=== PATIENT | female | born 1965 | race Caucasian/White ===

== ENCOUNTER 2017-07-08 13:56 | Emergency (ER) | payer OTHER, BC ==
--- NOTE | 2017-07-08 15:34 | RADIOLOGY REPORT (SQ) ---
EXAM DESCRIPTION: KNEE RIGHT 3 VIEWS COMPLETED DATE/TIME: 07/08/2017 2:55 pm REASON FOR STUDY: bed8 s/p fall +ttenderness COMPARISON: 01/29/2024 NUMBER OF VIEWS: Three views. TECHNIQUE: AP, lateral, and sunrise patella radiographic images acquired of the right knee. LIMITATIONS: None. FINDINGS: Minimally displaced fracture of the inferior pole of the patella. Intact femoral and tibi al components of the prosthesis. No foreign body. IMPRESSION: Fracture of the patella. TECHNICAL DOCUMENTATION: JOB ID: [id number] [employer]- All Rights Reserved
--- NOTE | 2017-07-08 15:58 | ER Document Report ---
ED Extremity Problem, Lower <LISBETH ALVARADO - Last Filed: 07/08/17 16:03> - General Mode of Arrival: Ambulatory Information source: Patient TRAVEL OUTSIDE OF THE [place] IN LAST 30 DAYS: No - HPI Patient complains to provider of: Pain, Swelling Location: Knee - right Occurred: Just prior to arrival Where: Work Quality of pain: Achy, Sharp Context: Fell <ELIZABETH BLACK - Last Filed: 07/08/17 18:15> - General Chief Complaint: Knee Injury Stated Complaint: FALL/ KNEE PAIN Time Seen by Provider: 07/08/17 15:48 Notes: Patient is a 52-year-old female who presents to the emergency department today with complaints of right knee pain secondary to a fall that occurred at work. Patient states she has a history of bilateral knee replacements. Patient states she had both knee surgeries secondary to her legs being "bone on bone". Patient denies any other injuries during the fall. (ELIZABETH BLACK) Past Medical History - General Information source: Patient - Social History Smoking Status: Never Smoker Cigarette use (# per day): No Chew tobacco use (# tins/day): No Frequency of alcohol use: Occasional Drug Abuse: None Lives with: Family Family History: Reviewed & Not Pertinent Musculoskeltal Medical History: Reports Other - Hx of severe arthritis Past Surgical History: Reports: Hx Orthopedic Surgery - Bilateral knee replacements <ELIZABETH BLACK - Last Filed: 07/08/17 18:15> Review of Systems - Review of Systems Constitutional: No symptoms reported EENT: No symptoms reported Cardiovascular: No symptoms reported Respiratory: No symptoms reported Gastrointestinal: No symptoms reported Genitourinary: No symptoms reported Female Genitourinary: No symptoms reported Musculoskeletal: See HPI, Joint pain - right knee Skin: No symptoms reported Hematologic/Lymphatic: No symptoms reported Neurological/Psychological: No symptoms reported -: Yes All other systems reviewed and negative <ELIZABETH BLACK - Last Filed: 07/08/17 18:15> Physical Exam <LISBETH ALVARADO - Last Filed: 07/08/17 16:03> <ELIZABETH BLACK - Last Filed: 07/08/17 18:15> - Vital signs Vitals: Temp Pulse Resp BP Pulse Ox 97.9 F 66 16 135/84 H 97 07/08/17 14:02 07/08/17 14:02 07/08/17 14:02 07/08/17 14:02 07/08/17 14:02 - Notes Notes: Physical Exam: General: Alert, appears well. HEENT: Normocephalic. Atraumatic. PERRL. Extraocular movements intact. Oropharynx clear. Neck: Supple. Non-tender. Respiratory: No respiratory distress. Clear and equal breath sounds bilaterally. Cardiovascular: Regular rate and rhythm. Abdominal: Normal Inspection. Non-tender. No distension. Normal Bowel Sounds. Back: Non-tender. No deformity or step off. Extremities: Upper extremities: Normal inspection. Normal ROM. Lower extremities: Holds knee in a slightly flexed position for comfort, right knee swelling anteriorly with associated tenderness with palpation. Neurological: Normal cognition. AAOx4. Normal speech. Psychological: Normal affect. Normal Mood. Skin: Warm. Dry. Normal color. (ELIZABETH BLACK) Course - Diagnostic Test Radiology reviewed: Image reviewed, Reports reviewed - Minimally displaced fracture inferior patella, total knee hardware looks good <LISBETH ALVARADO - Last Filed: 07/08/17 16:03> <ELIZABETH BLACK - Last Filed: 07/08/17 18:15> - Re-evaluation Re-evalutation: 07/08/17 16:08 The patient was given a copy of the x-ray report and a CD of the x-ray. She states [facility] with [facility], however she has not been seen there is a patient. She does live in [facility] [place]. I will give her the contact information for [facility] for surgery and told her she could either call them to be managed here locally, or call [facility] in [place] to be seen there. (LISBETH ALVARADO) - Vital Signs Vital signs: Temp Pulse Resp BP Pulse Ox 97.0 F 62 16 156/84 H 98 07/08/17 17:18 07/08/17 17:18 07/08/17 17:18 07/08/17 17:18 07/08/17 17:18 Discharge <LISBETH ALVARADO - Last Filed: 07/08/17 16:03> <ELIZABETH BLACK - Last Filed: 07/08/17 18:15> - Discharge Clinical Impression: Right patella fracture Qualifiers: Encounter type: initial encounter Fracture type: closed Fracture morphology: transverse Fracture alignment: displaced Qualified Code(s): S82.031A - Displaced transverse fracture of right patella, initial encounter for closed fracture Condition: Stable Disposition: HOME, SELF-CARE Additional Instructions: Use the knee immobilizer to stabilize the knee joint and prevent flexion. Elevate your leg all the time. Use ice packs to the knee today. Take medications for pain as needed. Call the orthopedic surgeon for a follow-up appointment this week. RETURN TO THE EMERGENCY ROOM IF ANY NEW OR WORSENING SYMPTOMS. Prescriptions: Oxycodone HCl/Acetaminophen [Percocet 5-325 mg Tablet] 1 - 2 tab PO ASDIR PRN # 15 tablet PRN Reason: Referrals: [facility] [Provider Group] - Follow up in 3-5 days Scribe Attestation: 07/08/17 16:08 I personally performed the services described in the documentation, reviewed and edited the documentation which was dictated to the scribe in my presence, and it accurately records my words and actions. (LISBETH ALVARADO) Scribe Documentation - Scribe Written by Jerel:: Jerel Olivo, 07/08/2017 1807 acting as scribe for :: Barbara <ELIZABETH BLACK - Last Filed: 07/08/17 18:15>
[2017-07-08] MEDS ORDERED: MORPHINE SULFATE 10 MG/ML INJ IV ONE (16:04)
[2017-07-08] MEDS ORDERED: ONDANSETRON HCL INJ/PF 4 MG/2 ML SDV IV ONE (16:04)
[2017-07-08 17:54] VITALS: BP 156/84
== END 2017-07-08 17:18 | disposition home or self-care (01) ==
LOC: ER 13:56
DX: S82.031A Displaced transverse fracture of right patella, initial encounter for closed fracture (principal); W19.XXXA Unspecified fall, initial encounter; Y99.0 Civilian activity done for income or pay; Z96.653 Presence of artificial knee joint, bilateral
CPT/HCPCS: 99283; 96374; 96375; 73562; J2270; J2405

== ENCOUNTER → 2018-01-08 | Outpatient (CLI) | payer BC, OTHER ==
--- NOTE | 2018-01-08 13:10 | WOMENS IMAGING REPORT ---
EXAM DESCRIPTION: BILAT SCREENING MAMMO W/CAD COMPLETED DATE/TIME: 01/08/2018 10:35 am REASON FOR STUDY: SCREENING MAMMO Z12.31 ENCNTR SCREEN MAMMOGRAM FOR MALIGNANT NEOPLASM OF AMRIT COMPARISON: 2014 TECHNIQUE: Standard craniocaudal and mediolateral oblique views of each breast recorded using digita l acquisition. LIMITATIONS: None. FINDINGS: No masses, calcifications or architectural distortion. No areas of suspicion. Read with the assistance of CAD. .[facility] - R2 Cenova Version 1.3 .[facility] - R2 Cenova Version 1.3 .[facility] - R2 Cenova Version 2.4 .[facility] - R2 Cenova Version 2.4 .[facility] - R2 [employer] Version 9.2 IMPRESSION: NORMAL MAMMOGRAM. BIRADS 1. BREAST DENSITY: b. There are scattered areas of fibroglandular density. BIRAD: 1 NEGATIVE RECOMMENDATION: ROUTINE SCREENING COMMENT: The patient has been notified of the results by letter per SA requirements. Additional no tification policies are in place for contacting patient with suspicious or incomplete findings. Quality ID #[id number]: The [employer] recommends an annual screening mammogram for women aged 40 years or over. This facility utilizes a reminder system to ensure that all patients receive reminder letters, and/or direct phone calls for appointments. This includes reminders for routine scr eening mammograms, diagnostic mammograms, or other Breast Imaging Interventions when appropriate. Th is patient will be placed in the appropriate reminder system. The [employer] ([employer]) has developed recommendations for screening MRI of the breast s in certain patient populations, to be used in conjunction with mammography. Breast MRI surveillanc e may be appropriate for women with more than 20% lifetime risk of developing breast cancer as deter mined by genetic testing, significant family history of the disease, or history of mantle radiation f or Hodgkins Disease. ACR Practice Guidelines 2008. TECHNICAL DOCUMENTATION: FINDING NUMBER: (1) ASSESSMENT: (1) JOB ID: [id number] [employer]- All Rights Reserved Reading location - IP/workstation name: [email or web address]
== END ==
LOC: WI 10:18
PROVIDERS: ATTEND Nurse Practitioner Family
DX: Z12.31 Encounter for screening mammogram for malignant neoplasm of breast (principal)
CPT/HCPCS: 77067